=== PATIENT | male | born 1985 | race Caucasian/White ===

== ENCOUNTER 2018-06-25 13:53 | Emergency (ER) | payer OTHER ==
[~2018-06-25] VITALS: Ht 175.3 cm; Wt 80.7 kg
[2018-06-25 14:00] VITALS: BP 126/75
[2018-06-25] MEDS ORDERED: HYDROmorphone PF 1 MG/ML DISP.SYRIN IV ONE (14:15)
[2018-06-25] MEDS ORDERED: ONDANSETRON PF 4 MG/2 ML VIAL. IV ONE (14:15)
--- NOTE | 2018-06-25 14:30 | RAD ---
Three views left shoulder History: pain Internally and externally rotated AP of shoulder obtained, as well as "Y" view. The glenohumeral relationship is normal. There is AC separation with the distal left clavicle projecting above the acromion. There is no evidence of fracture. Impression: Left AC separation. end impression Electronically signed by: Gal Huffman III, MD (06/25/2018 2:27 PM) [facility]
[2018-06-25] MEDS ORDERED: HYDR-3165 PO (15:10)
[2018-06-25] MEDS ORDERED: IBUP800T19 PO (15:10)
--- NOTE | 2018-06-25 15:10 | PHYS DOC ---
Past History Past Medical History: No Pertinent History Past Surgical History: Other ([place] teeth) Smoking: Non-smoker Adult General Chief Complaint Chief Complaint: UPPER EXTREMITY INJURY HPI HPI Patient is a 32 year old right-handed male who presents with complaining of injury to left shoulder. Patient states he had an accidental fall while skiing and landed on his left upper extremity. Patient denies loss of consciousness. Patient complaining of severe pain in left shoulder and rated his pain 10/10 and states he is not able to move his shoulder. Patient denies focal neurodeficit and other injuries. Review of Systems Review of Systems Constitutional: Denies fever or chills [] Eyes: Denies change in visual acuity, redness, or eye pain [] HENT: Denies nasal congestion or sore throat [] Respiratory: Denies cough or shortness of breath [] Cardiovascular: No additional information not addressed in HPI [] GI: Denies abdominal pain, nausea, vomiting, bloody stools or diarrhea [] : Denies dysuria or hematuria [] Musculoskeletal: Denies back pain, reports joint pain [] Integument: Denies rash or skin lesions [] Neurologic: Denies headache, focal weakness or sensory changes [] Endocrine: Denies polyuria or polydipsia [] All other systems were reviewed and found to be within normal limits, except as documented in this note. Current Medications Current Medications Current Medications Medications (Trade) Dose Ordered Sig/Yon Start Time Stop Time Status Last Admin Dose Admin Acetaminophen/ Hydrocodone Bitart (Lortab 5/325) 2 tab 1X ONCE 06/25/18 15:15 06/25/18 15:16 UNV Hydromorphone HCl (Dilaudid) 1 mg 1X ONCE 06/25/18 14:15 06/25/18 14:25 DC 06/25/18 14:11 1 MG Ondansetron HCl (Zofran) 4 mg 1X ONCE 06/25/18 14:15 06/25/18 14:25 DC 06/25/18 14:12 4 MG Allergies Allergies Allergies Coded Allergies Type Severity Reaction Last Updated Verified No Known Drug Allergies 06/25/18 No Physical Exam Physical Exam Constitutional: Well developed, well nourished, moderate distress, non-toxic appearance. [] HENT: Normocephalic, atraumatic Eyes: PERRLA, EOMI, conjunctiva normal, no discharge. [] Neck: Normal range of motion, no tenderness, supple, no stridor. [] Cardiovascular:Heart rate regular rhythm, no murmur [] Lungs & Thorax: Bilateral breath sounds clear to auscultation [] Skin: Warm, dry, no erythema, no rash. [] Back: No tenderness, no CVA tenderness. [] Extremities: Left shoulder with deformity and tenderness in before meals joint with edema, limited range of motion, no neurovascular deficit, no cyanosis, no clubbing.[] Neurologic: Alert and oriented X 3, normal motor function, normal sensory function, no focal deficits noted. [] Psychologic: Affect normal, judgement normal, mood normal. [] EKG EKG [] Radiology/Procedures Radiology/Procedures [address] [address] IMAGING REPORT Signed PATIENT: NASIR ZIMMER ACCOUNT: [id number] : 1985 LOCATION: ER AGE: 32 SEX: M EXAM STATUS: PRE ER ORD. PHYSICIAN: PHILLY CAMACHO MD REASON: fall PROCEDURE: SHOULDER 2+V LEFT Three views left shoulder History: pain Internally and externally rotated AP of shoulder obtained, as well as "Y" view. The glenohumeral relationship is normal. There is AC separation with the distal left clavicle projecting above the acromion. There is no evidence of fracture. Impression: Left AC separation. end impression Electronically signed by: Young Milian III, MD (06/25/2018 2:27 PM) [facility] DICTATED AND SIGNED BY: YOUNG MILIAN III, MD DATE: 06/25/18 1426 CC: PHILLY CAMACHO MD; NON,STAFF ~ Course & Med Decision Making Course & Med Decision Making Pertinent Imaging studies reviewed. (See chart for details) Evaluation of patient in ER showed 32-year-old right-handed male patient with ski injury to left shoulder. Patient had AC separation with1 inch gap without neurovascular deficit. Patient treated with Dilaudid and Zofran and felt better. Shoulder immobilizer was applied. Patient is visiting this area from [place] and plans to follow up with a orthopedic physician in his home town. Prescription for [place] and ibuprofen was given. Dragon Disclaimer Dragon Disclaimer This electronic medical record was generated, in whole or in part, using a voice recognition dictation system. Departure Departure: Impression: Primary Impression: Separation of right acromioclavicular joint Additional Impression: Accidental fall from skis Disposition: HOME, SELF-CARE (at 1508) Condition: IMPROVED Referrals: NON,STAFF (PCP) Patient Instructions: Acromioclavicular Separation with [facility], Acromioclavicular Separation, Surgery for, with [facility] Additional Instructions: Apply ice on the affected area Follow-up with your orthopedic physician in 2 or 3 days Return to ER if not getting better Scripts Hydrocodone Bit/Acetaminophen (NORCO 5-325 TABLET) 1 Each Tablet 1 TAB PO PRN Q6HRS PRN for PAIN, #20 TAB 0 Refills Prov: PHILLY CAMACHO MD 06/25/18 Ibuprofen (IBUPROFEN) 800 Mg Tablet 1 TAB PO TID for pain, #30 TAB Prov: PHILLY CAMACHO MD 06/25/18 Problem Qualifiers Primary Impression: Separation of right acromioclavicular joint Encounter type: initial encounter Qualified Codes: S43.101A - Unspecified dislocation of right acromioclavicular joint, initial encounter PHILLY CAMACHO MD Jun 25, 2018 15:10
[2018-06-25] MEDS ORDERED: HYDROcodone/APAP 5/325MG 1 TAB TABLET PO ONE (15:15)
== END 2018-06-25 15:30 | disposition home or self-care (01) ==
LOC: ER 13:53
DX: S43.102A Unspecified dislocation of left acromioclavicular joint, initial encounter (principal); W18.39XA Other fall on same level, initial encounter; Y93.23 Activity, snow (alpine) (downhill) skiing, snowboarding, sledding, tobogganing and snow tubing; Y92.89 Other specified places as the place of occurrence of the external cause; Y99.8 Other external cause status
CPT/HCPCS: 29105; 73030; 96374; 96375; 99284; J1170; J2405